=== PATIENT | female | born 1970 | race African-American/Black ===

== ENCOUNTER 2016-10-08 19:36 | Emergency (ER) | payer OTHER ==
[~2016-10-08] VITALS: Ht 165.1 cm; Wt 75.0 kg
[~2016-10-08 19:36] MED LIST: CYCL-36 PO; DICL50 PO; HYDR-2768 PO; HYDR-3533 PO; LISI-363 PO; PROT40TA PO
[2016-10-08 19:38] VITALS: BP 197/88; PULSE 92; RESP 16; TEMP 97.7; O2SAT 98
[2016-10-08 19:42] VITALS: BP 168/72; PULSE 88; RESP 20; TEMP 98; O2SAT 98
--- NOTE | 2016-10-08 19:48 | PD ---
HPI Chief Complaint: Injury Time Seen by Provider: 19:40 Travel History International Travel<30 days: No Contact w/Intl Traveler<30days: No Traveled to known affect area: No History of Present Illness HPI 46-year-old female with history of hypertension presents for evaluation of left leg pain. She reports that 9 days ago she slipped in the shower and fell, striking her left masterson against the bathtub. She developed some bruising and soft tissue swelling along the left masterson which initially was gradually getting better. Over the course of the past 1 or 2 days she has had increased pain with probable evaluation. She scrubs and is an aching pain along the anterior aspect of the left lower masterson where she struck her masterson against the bathtub. She denies any pain in the left knee, the left thigh, the left calf, the left ankle or the left foot. She denies numbness or tingling or weakness. She works as an [employer] at [employer] and she has been working 12 hour shifts this week which requires a lot of walking and standing. She has no other complaints at this time. PFSH Past Medical History Arthritis: No Asthma: No Autoimmune Disease: No Blood Disorders: No Anxiety: No Depression: Yes Heart Rhythm Problems: No Cancer: No Cardiac Catheterization: Yes (2003- ) Cardiovascular Problems: Yes (CARDIAC CATH 2003) High Cholesterol: Yes Chest Pain: No Congestive Heart Failure: No COPD: No Cerebrovascular Accident: No Diabetes: No Diminished Hearing: No Endocrine: No Gastrointestinal Disorders: Yes (GASTROPARESIS, GASTRITIS) GERD: Yes Glaucoma: No Genitourinary: No Headaches: Yes Hepatitis: No Hiatal Hernia: No Hypertension: Yes Immune Disorder: No Kidney Stones: No Musculoskeletal: No Neurologic: No Psychiatric: Yes Reproductive: No Respiratory: No Migraines: No Myocardial Infarction: No Renal Failure: No Seizures: No Sickle Cell Disease: No Sleep Apnea: No Thyroid Disease: No Ulcer: No Menopausal: Yes : 4 Para: 3 Tubal Ligation: Yes Past Surgical History Abdominal Surgery: No AICD: No Appendectomy: No Cardiac Surgery: No Cholecystectomy: No Ear Surgery: No Endocrine Surgery: No Eye Surgery: No Genitourinary Surgery: No Gynecologic Surgery: Yes (TUBAL LIGATION,& HYSTERECT) Hysterectomy: Yes Joint Replacement: No Neurologic Surgery: Yes (DISCECTOMY L4-5) Oral Surgery: No Pacemaker: No Thoracic Surgery: No Other Surgery: Yes (HERNIA REPAIR umbilical) Social History Alcohol Use: No Tobacco Use: No Substance Use: No Allergies-Medications (Allergen,Severity, Reaction): Coded Allergies: Sulfa (Verified Allergy, Severe, Swelling, 10/08/16) Adhesives (Verified Allergy, Mild, 10/08/16) Penicillin (Verified Allergy, Mild, Rash, 10/08/16) Reported Meds & Prescriptions Reported Meds & Active Scripts Active Voltaren (Diclofenac Sodium) 50 Mg Tabec 50 Mg PO TID Lortab 5 mg/325 mg (Hydrocodone/Acetaminophen 5 mg/325 mg) 1 Tab 1 Tab PO Q6H PRN Reported Protonix (Pantoprazole Sodium) 40 Mg Tab 40 Mg PO DAILY Flexeril (Cyclobenzaprine HCl) 10 Mg Tab 10 Mg PO TID PRN Hctz (Hydrochlorothiazide) 25 Mg Tab 25 Mg PO DAILY Lisinopril 20 mg (Lisinopril) 20 Mg Tab 20 Mg PO DAILY Review of Systems Except as stated in HPI: all other systems reviewed are Neg Physical Exam Narrative GENERAL: Well-developed well-nourished female in no acute distress SKIN: Warm and dry. There Is no appreciable bruising of the skin, there is no lower extremity pitting edema, there are no open wounds. CARDIOVASCULAR: Regular rate and rhythm. No murmur appreciated. RESPIRATORY: No accessory muscle use. Clear to auscultation. Breath sounds equal bilaterally. Extremities: There is tenderness to palpation along the anterior aspect of the left mid and lower masterson. There is no edema. Negative Homans. There is no tenderness to palpation to the left knee, the left thigh, left calf musculature , the left ankle, no tenderness to palpation along the left fibula or the left foot. 2+ dorsalis pedis and posterior tibial pulses. The compartments of the left leg are soft. Data Data Last Documented VS Vital Signs Date Time Temp Pulse Resp B/P Pulse Ox O2 Delivery O2 Flow Rate FiO2 10/08/16 19:42 98.0 88 20 168/72 98 Orders Tibia/Fibula (Ap/Lat) (10/08/16 ) Ice/Cold Pack (10/08/16 19:47) Clonidine (Catapres) (10/08/16 20:00) Acetaminophen (Tylenol) (10/08/16 20:00) MDM Medical Decision Making Medical Screen Exam Complete: Yes Emergency Medical Condition: Yes Medical Record Reviewed: Yes Differential Diagnosis Tibia contusion, tibia fracture, hematoma, DVT, compartment syndrome Narrative Course 38-year-old female who has had pain in her left masterson after striking her left masterson 9 days ago on the edge of a bathtub. She has been working 12 hour shifts as an [employer] this week which has required standing and walking and now the pain is worse today. On examination there is no evidence of a DVT. There is no evidence of a compartment syndrome. Her pain is isolated to the left masterson. There is no edema. There are no open wounds. Likely the patient has suffered a contusion which has been exacerbated by increased walking. Tylenol administered. Ice pack provided. X-ray of the left tibia-fibula will be ordered. X-ray reveals no fracture. Patient is stable for discharge. Diagnosis Primary Impression: Contusion of left tibia Additional Instructions: Ice pack several times a day 10-15 minutes at a time. Elevate. Take Tylenol or Motrin for discomfort. Follow-up with primary care physician as needed. Return for any emergent medical conditions. Med/Other Pt SpecificInfo: No Change to Meds Disposition: 01 DISCHARGE HOME Condition: Stable Jose Enrique Orr Oct 08, 2016 19:48
[2016-10-08] MEDS ORDERED: cloNIDine HCL 0.1 MG TAB PO ONE (20:00)
[2016-10-08] MEDS ORDERED: ACETAMINOPHEN 325 MG TAB PO ONE (20:00)
--- NOTE | 2016-10-08 20:16 | RADRPT ---
EXAM DATE/TIME: 10/08/2016 20:08 [facility] COMPARISON: No previous studies available for comparison. INDICATIONS : Left anterior tibia pain, hit on chair MEDICAL HISTORY : None. SURGICAL HISTORY : None. ENCOUNTER: Initial ACUITY: 1 week PAIN SCORE: 5/10 LOCATION: Left Tibia FINDINGS: Two view examination of the left tibia demonstrates no evidence of fracture or dislocation. Bony min eralization is normal. There is superficial soft tissue swelling seen laterally. CONCLUSION: Soft tissue swelling. No bony abnormality is seen. Hai Vanessa MD on October 08, 2016 at 20:13 Board Certified Radiologist. This report was verified electronically.
== END 2016-10-08 21:03 | disposition home or self-care (01) ==
LOC: NEPB 19:36
DX: S80.12XA Contusion of left lower leg, initial encounter (principal); W18.2XXA Fall in (into) shower or empty bathtub, initial encounter
CPT/HCPCS: 73590; 99283

== ENCOUNTER 2016-11-19 10:06 | Emergency (ER) | payer OTHER ==
[~2016-11-19] VITALS: Ht 162.6 cm; Wt 98.0 kg
[2016-11-19 10:09] VITALS: BP 186/84; PULSE 84; RESP 14; TEMP 98.2; O2SAT 99
--- NOTE | 2016-11-19 10:31 | PD ---
HPI Chief Complaint: Exposure to Blood/Body Fluids Time Seen by Provider: 10:31 Travel History International Travel<30 days: No Contact w/Intl Traveler<30days: No Traveled to known affect area: No History of Present Illness HPI 46-year-old female, [employer] employee, presents to the emergency department with a needlestick injury to her left index finger. The source patient reports having hepatitis C. Patient declines being up-to-date on tetanus vaccination. Reports her personal hepatitis and HIV status is negative. Allergies to adhesive, penicillin, sulfa. No other modifying factors or associated signs and symptoms. PFSH Past Medical History Arthritis: No Asthma: No Autoimmune Disease: No Blood Disorders: No Anxiety: No Depression: Yes Heart Rhythm Problems: No Cancer: No Cardiac Catheterization: Yes (2003- ) Cardiovascular Problems: Yes (CARDIAC CATH 2003) High Cholesterol: Yes Chest Pain: No Congestive Heart Failure: No COPD: No Cerebrovascular Accident: No Diabetes: No Diminished Hearing: No Endocrine: No Gastrointestinal Disorders: Yes (GASTROPARESIS, GASTRITIS) GERD: Yes Glaucoma: No Genitourinary: No Headaches: Yes Hepatitis: No Hiatal Hernia: No Hypertension: Yes Immune Disorder: No Kidney Stones: No Musculoskeletal: No Neurologic: No Psychiatric: Yes Reproductive: No Respiratory: No Immunizations Current: Yes Migraines: No Myocardial Infarction: No Renal Failure: No Seizures: No Sickle Cell Disease: No Sleep Apnea: No Thyroid Disease: No Ulcer: No ?: Not Menopausal: Yes : 4 Para: 3 Tubal Ligation: Yes Past Surgical History Abdominal Surgery: No AICD: No Appendectomy: No Cardiac Surgery: No Cholecystectomy: No Ear Surgery: No Endocrine Surgery: No Eye Surgery: No Genitourinary Surgery: No Gynecologic Surgery: Yes (TUBAL LIGATION,& HYSTERECT) Hysterectomy: Yes Joint Replacement: No Neurologic Surgery: Yes (DISCECTOMY L4-5) Oral Surgery: No Pacemaker: No Thoracic Surgery: No Other Surgery: Yes (HERNIA REPAIR umbilical) Social History Alcohol Use: Yes (OCC) Tobacco Use: No Substance Use: No Allergies-Medications (Allergen,Severity, Reaction): Coded Allergies: Sulfa (Verified Allergy, Severe, Swelling, 11/19/16) Adhesives (Verified Allergy, Mild, 11/19/16) Penicillin (Verified Allergy, Mild, Rash, 11/19/16) Reported Meds & Prescriptions Reported Meds & Active Scripts Active Voltaren (Diclofenac Sodium) 50 Mg Tabec 50 Mg PO TID Lortab 5 mg/325 mg (Hydrocodone/Acetaminophen 5 mg/325 mg) 1 Tab 1 Tab PO Q6H PRN Reported Protonix (Pantoprazole Sodium) 40 Mg Tab 40 Mg PO DAILY Flexeril (Cyclobenzaprine HCl) 10 Mg Tab 10 Mg PO TID PRN Hctz (Hydrochlorothiazide) 25 Mg Tab 25 Mg PO DAILY Lisinopril 20 mg (Lisinopril) 20 Mg Tab 20 Mg PO DAILY Review of Systems Except as stated in HPI: all other systems reviewed are Neg Physical Exam Narrative GENERAL: Well-nourished, well-developed female patient, in no acute distress SKIN: Warm and dry. Point, puncture wound to left hand distal aspect of second digit; no erythema, no edema, no drainage. HEAD: Atraumatic. Normocephalic. EYES: Pupils equal and round. No scleral icterus. No injection or drainage. ENT: Mucosa pink and moist. Airway patent. NECK: Trachea midline. CARDIOVASCULAR: Regular rate. RESPIRATORY: No accessory muscle use. GASTROINTESTINAL: Rounded. MUSCULOSKELETAL: No obvious deformities. No clubbing. No cyanosis. No edema. NEUROLOGICAL: Awake and alert. Oriented 3. No obvious cranial nerve deficits. Motor grossly within normal limits. Normal speech. PSYCHIATRIC: Appropriate mood and affect; insight and judgment normal. Data Data Last Documented VS Vital Signs Date Time Temp Pulse Resp B/P Pulse Ox O2 Delivery O2 Flow Rate FiO2 11/19/16 10:09 98.2 84 14 186/84 99 Orders Tetanus/Diphtheria Tox Adult (Tetanus/Di (11/19/16 10:45) MDM Medical Decision Making Medical Screen Exam Complete: Yes Emergency Medical Condition: Yes Medical Record Reviewed: Yes Differential Diagnosis Exposure to blood, needlestick injury, exposure to hepatitis C Narrative Course 46-year-old female, [employer] employee, with needlestick injury to her left index finger. Source patient reports being hepatitis C positive. Tetanus updated in the ER. Protocol initiated. It started patient to follow up with employee health. Patient verbalizes understanding and agreement with treatment plan. Patient is medically cleared and stable for discharge. Discussed reasons to return to the emergency department. Instructed patient to follow up with primary care provider. Patient agrees with treatment plan. The patients vital signs are stable and the patient is stable for outpatient follow-up and treatment. Patient discharged home, stable and in no acute distress. Diagnosis Primary Impression: Employee exposure to blood Additional Impression: Needlestick injury of finger of left hand Referrals: Employ Med Primary Care Physician Patient Instructions: General Instructions, Needle Stick Injuries (ED), Postexposure Prophylaxis (ED) Additional Instructions: Follow blood exposure protocol instructions Follow-up with employee health Follow-up with primary care Return to emergency department for worsening of symptoms Disposition: 01 DISCHARGE HOME Condition: Stable Minerva Figueredo Nov 19, 2016 10:31
[2016-11-19] MEDS ORDERED: TETANUS/DIPHTHERIA TOXOID ADULT 0.5 ML VIAL IM ONE (10:45)
== END 2016-11-19 11:00 | disposition home or self-care (01) ==
LOC: NEPB 10:06
DX: S61.231A Puncture wound without foreign body of left index finger without damage to nail, initial encounter (principal); W46.1XXA Contact with contaminated hypodermic needle, initial encounter; Y92.239 Unspecified place in hospital as the place of occurrence of the external cause; Y99.0 Civilian activity done for income or pay
CPT/HCPCS: 90471; 99282

== ENCOUNTER → 2017-11-20 | Outpatient (CLI) | payer OTHER ==
[2017-11-20 11:28] LABS: AUTOMATED NEUTROPHIL # 3.8 TH/MM3 (1.8-7.7); BASOPHIL # 0.1 TH/MM3 (0-0.2); BASOPHIL % 0.7 % (0.0-2.0); EOSINOPHIL # 0.1 TH/MM3 (0-0.4); EOSINOPHIL % 1.5 % (0.0-4.0); HEMATOCRIT 39.8 % (35.0-46.0); HEMOGLOBIN 13.3 GM/DL (11.6-15.3); LYMPH % 46.3 % (9.0-44.0); LYMPHOCYTE # 3.8 TH/MM3 (1.0-4.8); MEAN CELL VOLUME 83.1 FL (80.0-100.0); MEAN CORPUSCULAR HEMOGLOBIN 27.9 PG (27.0-34.0); MEAN CORPUSCULAR HGB CONC 33.6 % (32.0-36.0); MEAN PLATELET VOLUME 6.8 FL (7.0-11.0); MONO % 4.9 % (0.0-8.0); MONOCYTE # 0.4 TH/MM3 (0-0.9); NEUT % 46.6 % (16.0-70.0); PLATELET COUNT 455 TH/MM3 (150-450); RED BLOOD COUNT 4.79 MIL/MM3 (4.00-5.30); WHITE BLOOD COUNT 8.2 TH/MM3 (4.0-11.0)
[2017-11-20 11:57] LABS: ALBUMIN 3.8 GM/DL (3.4-5.0); AST (GOT) 25 U/L (15-37); BICARBONATE 34.7 MEQ/L (21.0-32.0); BLOOD UREA NITROGEN 10 MG/DL (7-18); CALCIUM 8.5 MG/DL (8.5-10.1); CHLORIDE 105 MEQ/L (98-107); CHOLESTEROL 216 MG/DL (120-200); CREATININE 0.95 MG/DL (0.50-1.00); GLOMERULAR FILTRATION RATE 76 ML/MIN (>89); GLUCOSE,FASTING 102 MG/DL (74-99); SODIUM (NA) 142 MEQ/L (136-145); TRIGLYCERIDES 62 MG/DL (42-150)
[2017-11-20 12:01] LABS: ALKALINE PHOSPHATASE 66 U/L (45-117); ALT (GPT) 30 U/L (10-53); CHOLESTEROL/ HDL RATIO 3.74 RATIO; HDL CHOLESTEROL 57.7 MG/DL (40.0-60.0); LDL CHOLESTEROL 146 MG/DL (0-99); TOTAL BILIRUBIN ADULT 0.4 MG/DL (0.2-1.0); TOTAL PROTEIN 7.9 GM/DL (6.4-8.2)
[2017-11-20 16:23] LABS: HEMOGLOBIN A1C 6.6 % (4.3-6.0)
== END ==
LOC: CLAB 10:45
PROVIDERS: ATTEND Family Medicine
DX: E78.5 Hyperlipidemia, unspecified (principal); F32.9 Major depressive disorder, single episode, unspecified; R73.01 Impaired fasting glucose; Z13.21 Encounter for screening for nutritional disorder
CPT/HCPCS: 36415; 80053; 80061; 82306; 83036; 84443; 85025

== ENCOUNTER 2018-02-05 19:47 | Emergency (ER) | payer OTHER ==
[~2018-02-05] VITALS: Ht 162.6 cm; Wt 103.1 kg
[2018-02-05 20:31] VITALS: BP 168/78; PULSE 84; RESP 18; TEMP 98.1; O2SAT 99
--- NOTE | 2018-02-05 22:35 | PD ---
HPI Chief Complaint: Injury Time Seen by Provider: 22:30 Travel History International Travel<30 days: No Contact w/Intl Traveler<30days: No Traveled to known affect area: No History of Present Illness HPI 47-year-old right-hand dominant black female presents emergency department with complaints of right shoulder pain. She states that she been having pain now since approximately the sixth of this month after riding a roller coaster at [employer] [place] with a family member. She states the pain is in the back of her right shoulder with radiation down the outer aspect of her right upper arm. She states the pain is improved when she sleeps on it. She states that she has some discomfort when she moves her arm. She denies any focal numbness, tingling or weakness. No history of neck injury. No recent illness. Pain is mild to moderate. History Past Medical Histgory Narrative Medical Hypertension Tetanus Vaccination: < 5 Years Menopausal: Yes Hx Cancer: No Past Surgical History Narrative Surgical Lumbar discectomy, hysterectomy Social History Alcohol Use: Yes (OCC) Tobacco Use: No Allergies-Medications (Allergen,Severity, Reaction): Coded Allergies: Sulfa (Sulfonamide Antibiotics) (Unverified Allergy, Severe, Swelling, ) adhesive (Unverified Allergy, Mild, 02/05/18) penicillin G (Unverified Allergy, Mild, Rash, 02/05/18) Reported Meds & Prescriptions Reported Meds & Active Scripts Active Review of Systems General / Constitutional: No: Fever Eyes: No: Visual changes HENT: Positive: Neck Stiffness, No: Headaches, Neck Pain Cardiovascular: No: Chest Pain or Discomfort Respiratory: No: Shortness of Breath Gastrointestinal: No: Abdominal Pain Genitourinary: No: Dysuria Musculoskeletal: Positive: Myalgias, Pain, No: Arthralgias, Limited ROM, Weakness, Edema Skin: No Rash Neurologic: No: Weakness Psychiatric: No: Depression Endocrine: No: Polydipsia Hematologic/Lymphatic: No: Easy Bruising Physical Exam Narrative GENERAL: Well-developed, well-nourished in no apparent distress. Nontoxic appearing. HEAD: Normocephalic, atraumatic. EYES: Pupils equal round and reactive. Extraocular motions intact. No scleral icterus. No injection or drainage. ENT: Nose clear. Throat without erythema, tonsillar hypertrophy or exudate. Uvula midline. Airway patent. NECK: Trachea midline. Supple, tender to the right trapezius, moves head freely. No central bony tenderness or spasm. CARDIOVASCULAR: Regular rate and rhythm without murmurs, gallops, or rubs. RESPIRATORY: Clear to auscultation. Breath sounds equal bilaterally. No wheezes , rales, or rhonchi. GASTROINTESTINAL: Abdomen soft, non-tender, nondistended. No hepato-splenomegaly , or palpable masses. No guarding. EXTREMITIES: No clubbing, cyanosis, or edema. No joint tenderness. No pain to palpation of the right glenohumeral joint. She has full range of motion. Negative drop test. Full strength. No pain to palpation of the elbow, wrist or hand. She has intact sensation with good distal pulses. Intact median/ulnar /radial nerves. BACK: Nontender without deformity. No flank tenderness. NEUROLOGICAL: Awake, alert and oriented x 3 .Cranial nerves grossly intact. Motor and sensory grossly within normal limits. Normal speech. Data Data Last Documented VS Vital Signs Date Time Temp Pulse Resp B/P (MAP) Pulse Ox O2 Delivery O2 Flow Rate FiO2 02/05/18 20:31 98.1 84 18 168/78 (108) 99 MDM Medical Screen Exam Complete: Yes Emergency Medical Condition: No Differential Diagnosis MDM: High Differential diagnoses: sprain, strain, HNP, nerve or vascular injury, cervical radiculopathy Narrative Course A medical screening exam was performed: At the time of evaluation the presenting medical condition was determined not to be of an emergent nature. The patient was given the option of receiving additional care, but declined. Patient was given options for additional community resources from which to obtain care. The Patient Has Been advised to seek medical attention for their presenting complaint. The patient has been advised to return to the ER at any time if an emergent condition develops. The patient is opted to stay. This is cervical radiculopathy. Primary Impression: Cervical radiculopathy Patient Instructions: General Instructions Additional Instructions: Rest. Ice or heat whichever seems improved her pain the best. Prednisone, Flexeril and Voltaren. Follow-up with a primary care doctor in one week. Consider physical therapy. If your symptoms do not improve may consider MRI. Return to the ER for emergencies. Med/Other Pt SpecificInfo: Prescription(s) given Disposition: 01 DISCHARGE HOME Condition: Stable Keelen,Bobo T. PA February 05, 2018 22:35
[2018-02-05] MEDS ORDERED: PRED-503 PO (22:37)
[2018-02-05] MEDS ORDERED: CYCL10TA PO (22:37)
[2018-02-05] MEDS ORDERED: DICL75TA PO (22:37)
[2018-02-05] MEDS ORDERED: CYCLOBENZAPRINE HCL 10 MG TAB PO ONE (22:45)
[2018-02-05] MEDS ORDERED: ACETAMINOPHEN/HYDROcodone 325 MG/5 MG TAB PO ONE (22:45)
== END 2018-02-05 23:27 | disposition home or self-care (01) ==
LOC: NEPK 19:47
DX: M54.12 Radiculopathy, cervical region (principal); I10 Essential (primary) hypertension
CPT/HCPCS: 99281; 99283